=== PATIENT | female | born 1935 | race Caucasian/White ===

== ENCOUNTER 2020-06-24 20:12 | Inpatient (IN) | payer OTHER, BC ==
[~2020-06-24] VITALS: Ht 152.4 cm; Wt 70.3 kg
--- NOTE | 2020-06-24 20:27 | NUR ---
ER DR. CARRERO IN TRIAGE EVALUATING PT
--- NOTE | 2020-06-24 20:30 | NUR ---
Patient triaged and placed in waiting room. VSS and patient appears in no acute distress at this time. Accompanied by DAUGHTER, awaiting available bed, and MD notified of need for MSE.
[2020-06-24 21:11] VITALS: BP_SYST 90
[2020-06-24] MEDS ORDERED: ONDANSETRON HCL 4 MG/2 ML VIAL IVP ONE (21:15)
[2020-06-24] MEDS ORDERED: MORPHINE 2 MG/ML INJ. SYRINGE IVP ONE (21:15)
--- NOTE | 2020-06-24 21:24 | NUR ---
PT BIB FAMILY WITH C/O ABD AND "SWOLLEN BELLY" X 3DAYS AND SWOLLEN FEET FOR 10 DAYS. FAMILY REPORTS HX OF DIABETES. FAMILY STATES SHE WAS RECENTLY PRESCRIBED A WATER PILL AND IT HAS NOT HELPED. PT IS AA0X3, V/S STABLE
--- NOTE | 2020-06-24 21:28 | NUR ---
Patient transported to radiology via WC, accompanied by STAFF.
--- NOTE | 2020-06-24 21:40 | NUR ---
Dr Jimenez discussed findings with patients family and advised plan of care. Family aware she will be admitted.
--- NOTE | 2020-06-24 21:50 | NUR ---
PT WITH LAB FOR BLOOD DRAW
--- NOTE | 2020-06-24 22:00 | NUR ---
Placed in room 2 . Placed on cutter woodwind reeds, blood pressure machine and pulse oximeter. To gown for exam. Side rails up. Report given to DANYEL PORTER.
[2020-06-24 22:11] LABS: BASOPHILS # (AUTO) 0.1 K/uL (0.0-0.2); BASOPHILS % (AUTO) 1.3 % (0.0-2.0); EOSINOPHILS # (AUTO) 0.1 K/uL (0.0-0.4); EOSINOPHILS % (AUTO) 1.2 % (0.0-4.0); HEMATOCRIT 38.8 % (36-48); HEMOGLOBIN 12.6 g/dL (12.0-16.0); LYMPHOCYTES # (AUTO) 1.8 K/uL (1.0-5.5); LYMPHOCYTES % (AUTO) 20.5 % (20.5-51.5); MEAN CORPUSCULAR HEMOGLOBIN 29 pg (27-31); MEAN CORPUSCULAR HGB CONC 33 % (32-36); MEAN CORPUSCULAR VOLUME 89 fL (79.0-98.0); MONOCYTES # (AUTO) 0.7 K/uL (0.0-1.0); MONOCYTES % (AUTO) 8.5 % (1.7-9.3); NEUTROPHILS # (AUTO) 5.9 K/uL (1.8-7.7); NEUTROPHILS % (AUTO) 68.5 % (40.0-70.0); PLATELET COUNT (AUTO) 217 K/uL (130-430); RED BLOOD CELL COUNT(AUTO) 4.35 MIL/uL (4.2-6.2); RED CELL DISTRIBUTION WIDTH 17.9 % (9.0-15.0); WHITE BLOOD COUNT (AUTO) 8.6 K/uL (4.8-10.8)
[2020-06-24] MEDS ORDERED: MORPHINE 2 MG/ML INJ. SYRINGE ONE (22:42)
[2020-06-24 22:49] LABS: ANION GAP 11 (5-15); CALCIUM 8.5 mg/dL (8.4-11.0); CHLORIDE 99 mmol/L (98-107); CREATININE 2.15 mg/dL (0.55-1.30); GLUCOSE 276 mg/dL (70-99); POTASSIUM 4.7 mmol/L (3.5-5.1); SODIUM SERUM 129 mmol/L (136-145); UREA NITROGEN, BLOOD 62 mg/dL (8-21)
[2020-06-24 22:52] LABS: ALANINE AMINOTRANSFERASE 21 U/L (12-78); ALBUMIN 2.1 g/dL (3.4-4.8); ASPARTATE AMINOTRANSFERASE 52 U/L (10-37); TOTAL BILIRUBIN 6.5 mg/dL (0.0-1.0)
[2020-06-24 23:48] LABS: COLOR,URINE YELLOW (YELLOW)
[2020-06-24 23:49] LABS: BILIRUBIN,URINE 1+ (NEGATIVE); BLOOD, URINE 3+ (NEGATIVE); CLARITY/URINE CLOUDY (CLEAR); GLUCOSE,URINE NEGATIVE (NEGATIVE); KETONES,URINE NEGATIVE (NEGATIVE); LEUKOCYTE ESTERASE ,URINE 2+ (NEGATIVE); NITRITE, URINE NEGATIVE (NEGATIVE); PH,URINE 5.5 (5.0-8.0); PROTEIN URINE NEGATIVE (NEGATIVE)
[2020-06-25 00:07] LABS: BACTERIA,URINE MODERATE /HPF (None Seen); MUCUS,URINE 1+ /LPF (None Seen); RBC,URINE 20-50 /HPF (0-3)
--- NOTE | 2020-06-25 00:30 | NUR ---
Patient will be admitted to care of Dr Fischer. Admitted to tele unit. Will go to room 109. Belongings list completed. Complete and up to date summary report printed. SBAR report to be given at bedside with opportunity for questions.
[2020-06-25] MEDS ORDERED: cefTRIAXone 1 GM IVPB PREMIX 50 ML IV ONE (00:44)
[2020-06-25] MEDS ORDERED: cefTRIAXone 1 GM in D5W 50 ML IV ONE (00:45)
[2020-06-25] MEDS ORDERED: ONDANSETRON HCL 4 MG/2 ML VIAL IVP PRN (00:45)
--- NOTE | 2020-06-25 01:18 | NUR ---
INITIAL NOTE: PATIENT IS IN BED, RESTING. FAMILY AT BEDSIDE, APPROVED BY WAIST PLEATER. NO ACUTE DISTRESS. BREATHING IS EVEN AND NONLABORED. IV SITE IS PATENT AND INTACT. BED IS LOCKED AT LOWEST POSITION. SIDE RAILS UP. BED ALARM ON. CALL LIGHT IS WITH PATIENT. SAFETY AND FALL PRECAUTIONS IN PLACE. WILL CONTINUE WITH PLAN OF CARE.
--- NOTE | 2020-06-25 01:18 | NUR ---
ADMIT NOTE Received pt from ER to the floor with a diagnosis of new onset jaundice. Admission process initiated. patient oriented to pain management, safety and call light-teach back done.
[2020-06-25 01:27] VITALS: BP_SYST 100
--- NOTE | 2020-06-25 01:39 | NUR ---
CONSULT REASON FOR CONSULT: JAUNDICE PERSON I SPOKE WITH: JESS CONSULTING PHYSICIAN: DR. VELARDE ROVING CHANGER PHONE NUMBER: [phone] ORDERING PHYSICIAN: DR CUMMINGS NOTIFIED THE EXCHANGE THAT DR. DAVIS WAS ON SUSPENSION. THAT IF HE COMES HE NEEDS TO SIGN PAPERWORK.
[2020-06-25] MEDS ORDERED: LISI10TA5 PO (02:14)
[2020-06-25] MEDS ORDERED: INSU100I4 SUBQ (02:14)
[2020-06-25] MEDS ORDERED: FENO160 PO (02:14)
[2020-06-25] MEDS ORDERED: FERR240T5 PO (02:14)
[2020-06-25] MEDS ORDERED: INSU100I26 SQ (02:14)
[2020-06-25] MEDS ORDERED: MULT-1200 PO (02:14)
[2020-06-25] MEDS ORDERED: OMEP40CA13 PO (02:14)
[2020-06-25] MEDS ORDERED: CHOL500052 (02:14)
[2020-06-25] MEDS ORDERED: SALM1CAP4 PO (02:14)
[2020-06-25] MEDS ORDERED: FURO-150 PO (02:14)
[2020-06-25] MEDS ORDERED: ASCO500T20 PO (02:14)
[2020-06-25] MEDS ORDERED: FAMO20TA8 PO (02:14)
[2020-06-25] MEDS ORDERED: SUCR1TAB78 PO (02:14)
--- NOTE | 2020-06-25 06:43 | NUR ---
CLOSING NOTES: PATIENT IS IN BED, RESTING. FAMILY AT BEDSIDE. NO ACUTE DISTRESS. EVEN, NONLABORED BREATHING ON ROOM AIR. IV SITE IS PATENT AND INTACT. ALL NEEDS MET. BED IS LOCKED AT LOWEST POSITION. SIDE RAILS UP. BED ALARM ON. CALL LIGHT IS WITH PATIENT. SAFETY AND FALL PRECAUTIONS IN PLACE. WILL ENDORSE CARE TO DAYSHIFT RN.
[2020-06-25] MEDS ORDERED: DEXTROSE 50% JECT 50 ML DISP.SYRIN IVP PRN (07:30)
[2020-06-25 08:00] VITALS: BP_SYST 106
--- NOTE | 2020-06-25 08:00 | NUR ---
A/Ox4,afebrile,vss,no c/o pain or discomfort,needs attended,call light & personal items within pt reach,safety maintained continue to monitor pt.
--- NOTE | 2020-06-25 08:07 | NUR ---
Nutrition Update Kurtis scale 18 noted. Pt admitted for new onset jaundice Diet: Clear Liquid Diet BMI: 30.3 kg/m2 RD to follow per nutrition care standards.
[2020-06-25 08:36] LABS: ANION GAP 12 (5-15); CALCIUM 8.4 mg/dL (8.4-11.0); CHLORIDE 101 mmol/L (98-107); CREATININE 1.93 mg/dL (0.55-1.30); GLUCOSE 227 mg/dL (70-99); POTASSIUM 5.2 mmol/L (3.5-5.1); SODIUM SERUM 131 mmol/L (136-145); UREA NITROGEN, BLOOD 64 mg/dL (8-21)
[2020-06-25 08:42] LABS: ALANINE AMINOTRANSFERASE 18 U/L (12-78); ALBUMIN 1.9 g/dL (3.4-4.8); ASPARTATE AMINOTRANSFERASE 50 U/L (10-37); TOTAL BILIRUBIN 5.8 mg/dL (0.0-1.0)
--- NOTE | 2020-06-25 10:00 | NUR ---
K 5.2 per am lab and UA + moderate bacteria, here and made round,and notified of abnormal lab results.
--- NOTE | 2020-06-25 10:56 | NUR ---
CONSULTATION PAGED REASON FOR CONSULTATION:LIVER METS WAS CONSULT CALLED?Y PERSON WHO WAS NOTIFIED:ODILIA CONSULTING PHYSICIAN:SEBAS JEWELL (KAI PASCUAL TARGET MAN) REFRACTIVE SURGEON SPECIALTY:HEMATOLOGY/ROUGHER OPERATOR PHONE NUMBER:[phone] ORDERING PHYSICIAN:KIRAN COLVIN
[2020-06-25] MEDS: SUCRALFATE 1 GM TABLET PO SCH ×2 (11:30→17:54)
--- NOTE | 2020-06-25 12:00 | NUR ---
radiology came and attempt performing paracentesis and unable to complete because it's high and thick. resumed clear liquid diet hourly rounds made,safety maintained.
[2020-06-25 12:15] VITALS: BP_SYST 110
--- NOTE | 2020-06-25 14:00 | NUR ---
pt ambulated to bathroom with walker.safety maintained.daughter darryl called and updated of pt condition per nursing level of knowledge,and refer her to MD for further medical problems.
[2020-06-25] MEDS: NACL 0.9% 1,000 ML IV SCH ×2 (15:08→18:40)
--- NOTE | 2020-06-25 16:00 | NUR ---
VSS,PT RESTING WELL IN BED,NO C/O PAIN OR DISCOMFORT,IVF CONTINUE INFUSING.
[2020-06-25 16:12] VITALS: BP_SYST 108
[2020-06-25] MEDS: INSULIN REGULAR, HUMAN 100 UNITS/ML, 10 ML VIAL (humuLIN R) SUBCUT PRN ×2 (17:50→23:21)
--- NOTE | 2020-06-25 18:00 | NUR ---
CAME AND SEEN PT FOR ONCOLOGY CONSULT AND GIVEN PT DAUGHTER DARVIN PHONE TO TO CONTACT. Addendum: 06/25/20 at 1907 by [employer] geospatial imagery intelligence analyst BLOOD SUGAR 426 MG/DL.AND REPEAT BLOOD SUGAR 419 MG/DL.GIVE 12 UNITS REGULAR PER SLIDING SCALE ORDER AND CALLED AND LEFT MESSAGE IN EXCHANGE.
[2020-06-25 18:32] LABS: INR 1.9 (0.8-1.2); PROTHROMBIN TIME 19.1 SECS (9.5-12.5)
[2020-06-25] MEDS: MORPHINE 2 MG/ML INJ. SYRINGE IVP PRN ×2 (18:43→18:44)
--- NOTE | 2020-06-25 19:30 | NUR ---
INITIAL NOTE: RECEIVED REPORT FROM JODIE RN. PATIENT IS IN BED, RESTING. NO ACUTE DISTRESS. BREATHING IS EVEN AND NONLABORED ON ROOM AIR. IV SITE IS PATENT AND INTACT. BED IS LOCKED AT LOWEST POSITION. SIDE RAILS UP X2. BED ALARM ON. CALL LIGHT IS WITH PATIENT. SAFETY AND FALL PRECAUTIONS IN PLACE. WILL CONTINUE WITH PLAN OF CARE.
[2020-06-25 20:00] VITALS: BP_SYST 116
--- NOTE | 2020-06-25 20:06 | NUR ---
PAGED I PAGED DR. CUMMINGS @ 2005 I SPOKE WITH JUHI EXCHANGE
--- NOTE | 2020-06-25 20:21 | NUR ---
DR. CUMMINGS CALLED BACK @ 2020
--- NOTE | 2020-06-25 20:23 | NUR ---
SPOKE TO DR. CUMMINGS. SPOKE TO DR. CUMMINGS OVER THE PHONE. NOTIFIED MD OF BS OF 419 BEFORE DINNER WITH 12 UNITS OF REGULAR INSULIN COVERAGE AND BS OF 443 AT 1950. MD TO INPUT NEW ORDERS.
--- NOTE | 2020-06-25 20:33 | NUR ---
SPOKE TO RADIOLOGY: SPOKE TO EDWIN FROM RADIOLOGY CALLED. NOTIFIED THIS RN THAT PATIENT'S PROCEDURE WILL BE MOVED TO TOMORROW MORNING 06/26/2020 IN THE AM
--- NOTE | 2020-06-25 22:00 | NUR ---
ROUNDS: PATIENT IS IN BED, SLEEPING. NO SIGNS OF ACUTE DISTRESS. BREATHING IS EVEN AND UNLABORED. CALL LIGHT IS WITH PATIENT. SAFETY AND FALL PRECAUTIONS IN PLACE. WILL CONTINUE TO MONITOR PATIENT.
--- NOTE | 2020-06-26 00:15 | NUR ---
ROUNDS: PATIENT IS IN BED, RESTING. NO S/S OF ACUTE DISTRESS. RESPIRATIONS ARE EVEN AND NONLABORED. CALL LIGHT IS WITH PATIENT. SAFETY AND FALL PRECAUTIONS IN PLACE. WILL CONTINUE MONITORING.
[2020-06-26 01:14] VITALS: BP_SYST 96
[2020-06-26] MEDS: NACL 0.9% 1,000 ML IV SCH ×3 (01:41→23:30)
--- NOTE | 2020-06-26 02:30 | NUR ---
ROUNDS: PATIENT IS IN BED, SLEEPING. NO SIGNS OF ACUTE DISTRESS. EVEN AND UNLABORED BREATHING. CALL LIGHT IS WITH PATIENT. SAFETY AND FALL PRECAUTIONS IN PLACE. WILL CONTINUE MONITORING.
--- NOTE | 2020-06-26 04:30 | NUR ---
ROUNDS: PATIENT IS RESTING IN BED. NO S/S OF ACUTE DISTRESS. RESPIRATIONS ARE EVEN AND UNLABORED ON ROOM AIR. CALL LIGHT IS WITH PATIENT. SAFETY AND FALL PRECAUTIONS IN PLACE. WILL CONTINUE MONITORING.
[2020-06-26] MEDS: SUCRALFATE 1 GM TABLET PO SCH ×3 (06:07→17:40)
[2020-06-26] MEDS: INSULIN REGULAR, HUMAN 100 UNITS/ML, 10 ML VIAL (humuLIN R) SUBCUT PRN ×3 (06:13→17:39)
[2020-06-26 07:12] LABS: BASOPHILS % (AUTO) 0.8 % (0.0-2.0); EOSINOPHILS # (AUTO) 0.1 K/uL (0.0-0.4); HEMATOCRIT 35.9 % (36-48); HEMOGLOBIN 11.9 g/dL (12.0-16.0); LYMPHOCYTES # (AUTO) 1.5 K/uL (1.0-5.5); LYMPHOCYTES % (AUTO) 22.6 % (20.5-51.5); MEAN CORPUSCULAR HEMOGLOBIN 29 pg (27-31); MEAN CORPUSCULAR HGB CONC 33 % (32-36); MEAN CORPUSCULAR VOLUME 88 fL (79.0-98.0); MONOCYTES # (AUTO) 0.6 K/uL (0.0-1.0); MONOCYTES % (AUTO) 9.3 % (1.7-9.3); NEUTROPHILS # (AUTO) 4.2 K/uL (1.8-7.7); NEUTROPHILS % (AUTO) 65.3 % (40.0-70.0); PLATELET COUNT (AUTO) 162 K/uL (130-430); RED BLOOD CELL COUNT(AUTO) 4.06 MIL/uL (4.2-6.2); RED CELL DISTRIBUTION WIDTH 17.8 % (9.0-15.0); WHITE BLOOD COUNT (AUTO) 6.5 K/uL (4.8-10.8)
--- NOTE | 2020-06-26 07:18 | NUR ---
CLOSING NOTES: ENDORSED CARE TO DAYSHIFT RN. PATIENT IS IN BED, RESTING. NO ACUTE DISTRESS. EVEN, NONLABORED BREATHING ON ROOM AIR. IV SITE IS PATENT AND INTACT. ALL NEEDS MET. BED IS LOCKED AT LOWEST POSITION. SIDE RAILS UP. BED ALARM ON. CALL LIGHT IS WITH PATIENT. SAFETY AND FALL PRECAUTIONS IN PLACE.
[2020-06-26 07:53] LABS: ALANINE AMINOTRANSFERASE 23 U/L (12-78); ALBUMIN 1.8 g/dL (3.4-4.8); ANION GAP 8 (5-15); ASPARTATE AMINOTRANSFERASE 47 U/L (10-37); CALCIUM 7.9 mg/dL (8.4-11.0); CHLORIDE 101 mmol/L (98-107); CREATININE 1.86 mg/dL (0.55-1.30); GLUCOSE 193 mg/dL (70-99); POTASSIUM 4.5 mmol/L (3.5-5.1); SODIUM SERUM 130 mmol/L (136-145); TOTAL BILIRUBIN 4.3 mg/dL (0.0-1.0); UREA NITROGEN, BLOOD 63 mg/dL (8-21)
[2020-06-26 08:00] VITALS: BP_SYST 117
--- NOTE | 2020-06-26 08:00 | NUR ---
A/Ox3,vss,resting well in bed,no c/o pain or discomfort.needs attended,call light & personal items within pt reach safety maintained,keep pt NPO for oncoming CT liver biopsy.continue to monitor pt.
--- NOTE | 2020-06-26 10:00 | NUR ---
called and obtained order to transfuse 2 units FFP for INR 1.9,daughter called and informed and have daughter explained to pt in ukrainian by phone.
--- NOTE | 2020-06-26 12:00 | NUR ---
midline inserted to right upper arm double lumens,start first unit FFP via midline.hourly rounds made,safety maintained.
--- NOTE | 2020-06-26 13:00 | NUR ---
1st unit FFP completed and pt tolerated well no signs of transfusion reactions.start 2nd unit FFP and continue to monitor per transfusion protocol.
--- NOTE | 2020-06-26 14:00 | NUR ---
second unit FFP completed and no complications noted.however radiology called and unable to have CT liver biopsy done today,then resumed po diet.
--- NOTE | 2020-06-26 15:17 | NUR ---
DC Barriers: pending liver bx. DCP order with possible iv vs po abx. LVM notified dr. Fischer , family requests f/u .
[2020-06-26 15:23] LABS: INR 1.5 (0.8-1.2)
--- NOTE | 2020-06-26 16:00 | NUR ---
vss,pt ambulated to bathroom with walker and assistance provided,hourly rounds made,safety maintained.
[2020-06-26 16:40] VITALS: BP_SYST 89
--- NOTE | 2020-06-26 17:00 | NUR ---
RE-LIVER BIOPSY PT HAD A FFP TRANSFUSION FOR ELEVATED PT/INR, SCHEDULED FOR CT LIVER BIOPSY TODAY. DR ARCHULETA SAID THAT THEY CANNOT DO THE PROCEDURE TODAY BECAUSE THEY ONLY STAY IN HOSPITAL TILL 2:30PM. HE ALSO SAID THAT TOMORROW IS A HOLIDAY NO ONE WILL BE AVAILABLE TO DO THE PROCEDURES. PAGED DR CABRERA TORRES, AWAITING TO CALL BACK.
--- NOTE | 2020-06-26 18:45 | NUR ---
pt eating well for dinner,no n/v.no c/o pain or discomfort,will endorse report to lieutenant shift supervisor staff,continue to monitor pt.
[2020-06-26 20:05] VITALS: BP_SYST 94
--- NOTE | 2020-06-26 20:05 | NUR ---
Opening notes Pt asleep, easily awakens, VSS, afebrile. IVF infusing at ordered rate R.UA midline, dressing C/D/I. Call light within reach. Bed low, locked, siderails up x2. To monitor.
[2020-06-27 00:02] VITALS: BP_SYST 103
--- NOTE | 2020-06-27 00:45 | NUR ---
Rounds/Blood sugar Pt asleep, VSS, no s/s distress noted. BS checked 212, 4 units Regular insulin administered per protocol. IVF infusing at ordered rate R. arm midline, dressing C/D/I. Call light within reach. Bed low, locked, siderails up x2, alarm on. To monitor.
[2020-06-27] MEDS: INSULIN REGULAR, HUMAN 100 UNITS/ML, 10 ML VIAL (humuLIN R) SUBCUT PRN ×3 (00:49→13:01)
--- NOTE | 2020-06-27 03:50 | NUR ---
Rounds Pt asleep, no s/s distress noted. IVF infusing at ordered rate R. arm midline, dressing C/D/I. Call light within reach. Bed low, locked, siderails up x2, alarm on. To monitor.
[2020-06-27] MEDS: SUCRALFATE 1 GM TABLET PO SCH ×2 (06:32→13:10)
--- NOTE | 2020-06-27 06:35 | NUR ---
Closing notes Pt asleep, easily awakens, no s/s distress noted. IVF infusing at ordered rate R.UA midline, dressing C/D/I. BS checked 201, 4 units Reg insulin given per protocol. Call light within reach. Bed low, locked, siderails up x2. To monitor.
[2020-06-27 08:00] VITALS: BP_SYST 116
--- NOTE | 2020-06-27 08:00 | NUR ---
initial notes rec patient awake alert with ivf infusin g well. no infiltration noted. resp easy and unlabored. no sob noted. bed to the lowest position and side rails up and locked. call light within reached and knows when to call for assistance. will continue to monitor patient.
[2020-06-27 08:42] LABS: INR 1.7 (0.8-1.2)
[2020-06-27] MEDS ORDERED: PHYTONADIONE 10 MG in NS 50 ML IV ONE (09:00)
--- NOTE | 2020-06-27 09:25 | NUR ---
rounds seen by dr ginna abraham and spoke with dr gasca radiologist re liver bx. no sob noted.
--- NOTE | 2020-06-27 10:00 | NUR ---
rounds seen by dr rodrigues and with order to go home. stated he spoke with dr ginna abraham and bx can be done as an out patient.
[2020-06-27] MEDS: NACL 0.9% 1,000 ML IV SCH (10:33)
[2020-06-27 12:53] VITALS: BP_SYST 116
--- NOTE | 2020-06-27 13:00 | NUR ---
rounds no hypo hyperglycemic reaction noted. ambulates with min assists to the br with a walker.
[2020-06-27 14:14] VITALS: BP_SYST 116
[2020-06-27 14:31] LABS: CEA 20.3 ng/mL (0.0-4.7)
--- NOTE | 2020-06-27 15:20 | NUR ---
closing notes pt was discharged after daughter came to brain picker patient. midline to the upper r arm was removed and heplock on the l ac. no bleeding noted. id band was removed as well. was wheeled outside via wheelchair. met with daughter outside and discussed d/c instructions with her. re appt with dr posada and medication reconciliation discussed with her. no sob noted. bed to the lowest position and side rails up and locked. Addendum: 06/27/20 at 1543 by Rochelle Sarah RN amend two last sentences of my charting.
--- NOTE | 2020-07-01 09:58 | NUR ---
Discharge Planning: DCP faxed pt referral to [facility] (f [phone] p [phone]) DCP to follow up Addendum: 07/01/20 at 1457 by Jessica HERNANDEZ DCP followed up on pt referral to [facility] (f [phone] p [phone]) per Clau pt accepted and will be seen 07/02/2020
--- NOTE | 2020-07-02 13:04 | NUR ---
Discharge Follow Up Phone Call Phoned the number listed for patient, , and spoke with patient's daughter, Ko. She stated that patient is restless and weak and needing round the clock supervision. Patient had a follow up appointment with her PCP, Dr Murray, yesterday and will see the oncologist tomorrow. [facility] came today and will arrange for PT and RN services. I recommended that they phone the telehealth case manager for [facility] to determine if patient will qualify for more hours. No other questions.
== END 2020-06-27 15:00 | disposition home health service (06) | DRG 441 ==
LOC: SED 20:12 → STU 06-25 00:34 → SMU 06-26 10:38
PROVIDERS: ADMIT Internal Medicine Hospice and Palliative Medicine; ATTEND Internal Medicine Hospice and Palliative Medicine
PROC: 0W9G3ZZ Drainage of Peritoneal Cavity, Percutaneous Approach (ICD-10-PCS; principal; 2020-06-25)
DX: K76.9 Liver disease, unspecified (principal); N17.0 Acute kidney failure with tubular necrosis; C78.7 Secondary malignant neoplasm of liver and intrahepatic bile duct; R18.8 Other ascites; E11.9 Type 2 diabetes mellitus without complications; E66.01 Morbid (severe) obesity due to excess calories; R16.0 Hepatomegaly, not elsewhere classified; E78.00 Pure hypercholesterolemia, unspecified; E78.5 Hyperlipidemia, unspecified; I10 Essential (primary) hypertension; R79.1 Abnormal coagulation profile; Z90.49 Acquired absence of other specified parts of digestive tract; Z79.4 Long term (current) use of insulin; Z79.899 Other long term (current) drug therapy
CPT/HCPCS: 36415; 49083; 71045; 76376; 80053; 81000-TC; 82105; 82378; 82962; 83880; 84484; 85025; 85610-TC; 85730-TC; 86301; 86886; 86900; 86901; 87086; 93005; 96365; 96375; 99285; C1729; G0378; J0696; J2270; J2405; J3430; P9059